=== PATIENT | male | born 1985 | race Caucasian/White ===

== ENCOUNTER 2020-05-24 13:08 | Observation (INO) | payer MEDICARE ==
[~2020-05-24] VITALS: Ht 177.8 cm; Wt 90.7 kg
[2020-05-24] MEDS ORDERED: MINIPRESS1 MG PO (17:18)
[2020-05-24] MEDS ORDERED: WELLBUTRIN XL150 MG PO (17:18)
[2020-05-24] MEDS ORDERED: SEROQUEL XR50 MG PO (17:18)
[2020-05-24] MEDS ORDERED: DESYREL 50 MG T50 MG PO (17:19)
[2020-05-25] MEDS ORDERED: HYDROCODON-ACE1 EAC6 PO (14:49)
== END 2020-05-25 20:48 | disposition home or self-care (01) ==
LOC: ER1 13:08 → CDU 16:45 → M/S 16:45
PROVIDERS: ADMIT Orthopaedic Surgery
DX: S82.842A Displaced bimalleolar fracture of left lower leg, initial encounter for closed fracture (principal); S52.122A Displaced fracture of head of left radius, initial encounter for closed fracture; F99 Mental disorder, not otherwise specified; F17.210 Nicotine dependence, cigarettes, uncomplicated; Z20.822 Contact with and (suspected) exposure to COVID-19; Z98.890 Other specified postprocedural states; Z79.899 Other long term (current) drug therapy; W01.0XXA Fall on same level from slipping, tripping and stumbling without subsequent striking against object, initial encounter
CPT/HCPCS: 72131; 73060; 73080; 73090; 73590; 73600; 76000; 87635; 94760; 96374; 96375; 96376; 99285; C1713; G0378; J0690; J1100; J1170; J1885; J2001; J2250; J2270; J2405; J2704; J2765; J2795; J3010; J7120